=== PATIENT | female | born 1980 | race African-American/Black ===

== ENCOUNTER 2019-05-15 20:20 | Emergency (ER) | payer OTHER ==
--- OUTSIDE RECORDS SUMMARY | 2019-05-15 20:22 | XMS REPORT ---
:1980 [facility] [address] [place] [address] Care Team Providers Name Role Phone Unavailable Unavailable Unavailable Payers Payer Name Policy Type Policy Number Effective Date Expiration Date Problems This patient has no known problems. Allergies, Adverse Reactions, Alerts This patient has no known allergies or adverse reactions. Medications This patient has no known medications. Results Test Description Test Time Test Comments Text Results Atomic Results Result Comments - US PELVIS COMPLETE 2018-10-22 14:24:00 Patient Name: PAGE WONG Unit No: [id number] EXAMS: CPT CODE: [id number] US PELVIS COMPLETE 36718 PELVIC ULTRASOUND, 10/22/2018: COMPARISON: July 23, 2018 CLINICAL HISTORY: LEFT OVARIAN CYST TECHNIQUE: Transabdominal and endovaginal scanning was performed. FINDINGS: The uterus measures 7.1 x 3.9 x 4.6 cm. The endometrial stripe measured 5 mm in thickness. There is a 4 mm subtle echogenic focus within the endometrium. This appears to have a vascular stalk and is suspicious for a small endometrial polyp. There is a 1.1 x 1.0 x 1.2 cm anterior fundal right-sided intramural uterine fibroid. The right ovary measures 4.6 x 3.2 x 3.0 cm and contains small subcentimeter follicles. The left ovary measures 4.5 x 2.0 x 3.5 cm and contains small subcentimeter peripheral follicles. No free fluid is evident. CONCLUSION: Suspect 4 mm endometrial polyp. Probable uterine fibroid. Multiple small bilateral ovarian follicles. Findings are suspicious for PCOS. at 1424 Reported and signed by: Manuel Bob MD CC: Leyla Renteria MD Technologist: Kathie Kaur RDMS Probe: Trnscrbd D/ (1424) [email or web address] Orig Print D/T: S: 10/22/2018 (7228) [facility] NAME: WONGNIMESH RIVASPAGE Radiology Department [facility]YS: [facility] Whitfield MD [address] : 1980 AGE: 38 SEX: F [place] [address] LOC: Wandy.RAD PHONE #: [phone] EXAM DATE: 10/22/2018 STATUS: REG CLI FAX #: [phone] RAD NO: [id number] Page 1 Signed Report Patient Name: PAGE WONG Unit No: [id number] EXAMS: CPT CODE: [id number] US PELVIS COMPLETE 74170 <Continued> [facility] NAME: NIMESH WONGHANIE Radiology Department PHYS: SCARLETTMeggan Rubi Cornejo MD [address] : 1980 AGE: 38 SEX: F [place] [address] LOC: Wandy.RAD PHONE #: [phone] EXAM DATE: 10/22/2018 STATUS: REG CLI FAX #: [phone] RAD NO: [id number] Page 2 Signed Report - US TRANSVAGINAL W/PELVIS 2018-10-22 14:24:00 Patient Name: PAGE WONG Unit No: [id number] EXAMS: CPT CODE: [id number] US TRANSVAGINAL W/PELVIS 36237 PELVIC ULTRASOUND, 10/22/2018: COMPARISON: July 23, 2018 CLINICAL HISTORY: LEFT OVARIAN CYST TECHNIQUE: Transabdominal and endovaginal scanning was performed. FINDINGS: The uterus measures 7.1 x 3.9 x 4.6 cm. The endometrial stripe measured 5 mm in thickness. There is a 4 mm subtle echogenic focus within the endometrium. This appears to have a vascular stalk and is suspicious for a small endometrial polyp. There is a 1.1 x 1.0 x 1.2 cm anterior fundal right-sided intramural uterine fibroid. The right ovary measures 4.6 x 3.2 x 3.0 cm and contains small subcentimeter follicles. The left ovary measures 4.5 x 2.0 x 3.5 cm and contains small subcentimeter peripheral follicles. No free fluid is evident. CONCLUSION: Suspect 4 mm endometrial polyp. Probable uterine fibroid. Multiple small bilateral ovarian follicles. Findings are suspicious for PCOS. at 1424 Reported and signed by: Manuel Bob MD CC: Leyla Renteria MD Technologist: Kathie Kaur RDWI Probe: [id number] Trnscrbd D/ (0832) [email or web address] Orig Print D/T: S: 10/22/2018 (8253) [facility] NAME: PAGE WONG Radiology Department PHYS: Rubi Aaron MD [address] : 1980 AGE: 38 SEX: F [place] [address] LOC: NiviaRAD PHONE #: [phone] EXAM DATE: 10/22/2018 STATUS: REG CLI FAX #: [phone] RAD NO: [id number] Page 1 Signed Report Patient Name: PAGE WONG Unit No: [id number] EXAMS: CPT CODE: [id number] US TRANSVAGINAL W/PELVIS 16264 <Continued> [facility] NAME: PAGE OWNG Radiology Department PHYS: Rubi Aaron MD [address] : 1980 AGE: 38 SEX: F [place] [address] LOC: Wandy.RAD PHONE #: [phone] EXAM DATE: 10/22/2018 STATUS: REG CLI FAX #: [phone] RAD NO: [id number] Page 2 Signed Report - US TRANSVAGINAL W/PELVIS 2018-07-23 16:04:00 Patient Name: PAGE WONG Unit No: [id number] EXAMS: CPT CODE: [id number] US TRANSVAGINAL W/PELVIS 14413 Pelvic US performed July 23, 2018 1538 hours. COMPARISON: No prior images available for comparison but comparison is made to prior report dated 04/03/2001 CLINICAL HISTORY: Abnormal bleeding. DISCUSSION: Real-time horta scale sonography performed of the pelvis via the transabdominal and transvaginal approach. The uterus measures 82 x 34 x 44 mm and contains no focal myometrial abnormalities. The endometrium is homogenous and measures 6 mm in thickness. There is a focal hyperechoic region in the endometrium with vascular stalk measuring approximately 9 x 4 x 9 mm. Findings suggest polyp. The right ovary measures 48 x 34 x 40 mm and contains multiple small peripheral follicles. The left ovary measures 57 x 33 x 44 mm. It contains multiple small follicles. It also contains a heterogeneous 39 x 26 x 40 mm mass with some low level echoes. This likely represents a hemorrhagic cyst or endometrioma. Follow-up ultrasound to ensure resolution and exclude underlying abnormality is advised. Normal flow is seen in both ovaries. No significant free fluid in seen in the cul de sac. IMPRESSION: 1. Focal 9 mm echogenic foci in the endometrium with a vascular stalk, suggestive of polyp. 2. 4.0 cm complex cyst in the left ovary, possible hemorrhagic cyst or endometrioma. Short-term follow-up ultrasound is advised. 3. Multiple small follicles and enlarged ovaries, compatible with PCO at 1604 Reported and signed by: Emperatriz Thurman MD CC: Rubi Rowland MD; Leyla Renteria MD Technologist: Yudi Jordan [facility] Probe: [id number] Trnscrbd D/ (1604) Massiel Orig Print D/T: S: 07/23/2018 (9072) [facility] NAME: PAGE WONG Radiology Department PHYS: [facility]. - Rubi Rowland MD [address] : 1980 AGE: 38 SEX: F [place], [place] [address] LOC: NiviaRAD PHONE #: [phone] EXAM DATE: 07/23/2018 STATUS: REG CLI FAX #: [phone] RAD NO: [id number] Page 1 Signed Report Patient Name: PAGE WONG Unit No: [id number] EXAMS: CPT CODE: [id number] US TRANSVAGINAL W/PELVIS 28890 <Continued> [facility] NAME: PAGE WONG Radiology Department PHYS: Rubi Aaron MD [address] : 1980 AGE: 38 SEX: [place] [address] LOC: NiviaRAD PHONE #: [phone] EXAM DATE: 07/23/2018 STATUS: REG CLI FAX #: [phone] RAD NO: [id number] Page 2 Signed Report - US PELVIS COMPLETE 2018-07-23 16:04:00 Patient Name: PAGE WONG Unit No: [id number] EXAMS: CPT CODE: [id number] US PELVIS COMPLETE 82654 Pelvic US performed July 23, 2018 1538 hours. COMPARISON: No prior images available for comparison but comparison is made to prior report dated 04/03/2001 CLINICAL HISTORY: Abnormal bleeding. DISCUSSION: Real-time horta scale sonography performed of the pelvis via the transabdominal and transvaginal approach. The uterus measures 82 x 34 x 44 mm and contains no focal myometrial abnormalities. The endometrium is homogenous and measures 6 mm in thickness. There is a focal hyperechoic region in the endometrium with vascular stalk measuring approximately 9 x 4 x 9 mm. Findings suggest polyp. The right ovary measures 48 x 34 x 40 mm and contains multiple small peripheral follicles. The left ovary measures 57 x 33 x 44 mm. It contains multiple small follicles. It also contains a heterogeneous 39 x 26 x 40 mm mass with some low level echoes. This likely represents a hemorrhagic cyst or endometrioma. Follow-up ultrasound to ensure resolution and exclude underlying abnormality is advised. Normal flow is seen in both ovaries. No significant free fluid in seen in the cul de sac. IMPRESSION: 1. Focal 9 mm echogenic foci in the endometrium with a vascular stalk, suggestive of polyp. 2. 4.0 cm complex cyst in the left ovary, possible hemorrhagic cyst or endometrioma. Short-term follow-up ultrasound is advised. 3. Multiple small follicles and enlarged ovaries, compatible with PCO at 1604 Reported and signed by: Emperatriz Thurman MD CC: Rubi Rowland MD; Leyla Renteria MD Technologist: Yudi Jordan RDMS Probe: Trnscrbd D/ (1604) [email or web address].NMG Orig Print D/T: S: 07/23/2018 (9957) [facility] NAME: PAGE WONG Radiology Department PHYS: Rubi Aaron MD [address] : 1980 AGE: 38 SEX: F [place] [address] LOC: Wandy.RAD PHONE #: [phone] EXAM DATE: 07/23/2018 STATUS: REG CLI FAX #: [phone] RAD NO: [id number] Page 1 Signed Report Patient Name: PAGE WONG Unit No: [id number] EXAMS: CPT CODE: [id number] US PELVIS COMPLETE 44313 <Continued> [facility] NAME: PAGE WONG Radiology Department PHYS: Rubi Aaron MD [address] : 1980 AGE: 38 SEX: F [place] [address] LOC: F.RAD PHONE #: [phone] EXAM DATE: 07/23/2018 STATUS: REG CLI FAX #: [phone] RAD NO: [id number] Page 2 Signed Report
--- OUTSIDE RECORDS SUMMARY | 2019-05-15 20:22 | XMS REPORT ---
:1980 Author Organization [employer] Care Team Providers Name Role Phone Leyla Renteria Provider Role Unavailable Allergies, Adverse Reactions, Alerts Substance Reaction Event Type Cipro Info Not Available Drug Allergy Problems Problem Type Condition Code Onset Dates Condition Status Problem Depression with anxiety F41.8 Active Problem Vitamin D deficiency E55.9 Active Problem Obesity (BMI 30-39.9) E66.9 Active Problem Elevated liver function tests R94.5 Active Problem Elevated BP without diagnosis of R03.0 Active hypertension Problem Abnormal CBC R79.89 Active Problem Abnormal renal function test R94.4 Active Problem Abnormal pelvic ultrasound R93.89 Active Problem Hypercholesterolemia E78.00 Active Problem Schizoaffective disorder, F25.9 Active unspecified type Problem Uncontrolled type 2 diabetes E11.65 Active mellitus with hyperglycemia Problem PCOS (polycystic ovarian syndrome) E28.2 Active Problem Essential hypertension I10 Active Medications Medication Code System Code Instructions Start Date End Date Status Dosage Bactrim DS [facility] 99287379164 800-160 MG Orally Feb 13, Feb 18, Active 1 tablet Twice a day 2018 2018 Results No Known Results Summary Purpose [employer] Submission
--- OUTSIDE RECORDS SUMMARY | 2019-05-15 20:23 | XMS REPORT ---
[...] Problem Obesity (BMI 30-39.9) E66.9 Active Problem Abnormal renal function test R94.4 Active Assessment Vitamin D deficiency E55.9 Active Problem Abnormal pelvic ultrasound R93.89 Active Assessment Obesity (BMI 30-39.9) E66.9 Active Assessment Depression with anxiety F41.8 Active Problem Hypercholesterolemia E78.00 Active Problem Schizoaffective disorder, F25.9 Active unspecified type Problem Uncontrolled type 2 diabetes E11.65 Active mellitus with hyperglycemia Problem PCOS (polycystic ovarian syndrome) E28.2 Active Problem Essential hypertension I10 Active Assessment Hypercholesterolemia E78.00 Active Assessment Uncontrolled type 2 diabetes E11.65 Active mellitus with hyperglycemia Assessment Abnormal CBC R79.89 Active Assessment Elevated liver function tests R94.5 Active Problem Elevated liver function tests R94.5 Active Assessment Abnormal renal function test R94.4 Active Problem Elevated BP without diagnosis of R03.0 Active hypertension Assessment Schizoaffective disorder, F25.9 Active unspecified type Assessment Essential hypertension I10 Active Problem Abnormal CBC R79.89 Active Medications Medication Code Code Instructions Start End Status Dosage System Date Date Paxil CR [facility] 37545584790 37.5 MG Orally Active 1 tablet Twice daily BusPIRone HCl [facility] 82327406911 10 MG Orally Active 1 tablet Three times a day Metformin HCl [facility] 96273849486 1000 MG Orally Active 1 tablet Twice daily with a meal Multivitamin [facility] 02933349125 - Orally Active as directed Adults Lancets [facility] 15198428847 - as directed June Active as directed Test BS once 2018 (dispense daily lancets formulary to insurance) Darryl [facility] 30321820907 60 MG Orally Active 1 capsule Once a day in with food the evening Metformin HCl [facility] 74419930208 1000 MG Orally Active 1 tablet Twice daily with a meal Paxil ND 90347116800 10 MG Orally Active 1 tablet in Once a day the morning Lisinopril ND 97533747777 20 MG Orally Active 1 tablet Twice daily Blood Glucose NDC 0 as directed June Active as directed Monitor Test BS once 2018 (DISPENSE daily BLOOD GLUCOSE MONITOR FORMULARY TO INSURANCE) Blood Glucose NDC 0 as directed June as directed Test Strip Test BS once 2018 (DISPENSE daily BLOOD GLUCOSE TEST STRIPS FORMULARY TO INSURANCE) Results No Known Results Summary Purpose [employer] Submission
[2019-05-15] MEDS ORDERED: ASPIRIN 81 MG CHEWABLE TABLET ONE (20:59)
[2019-05-15 21:03] LABS: Absolute Lymphocytes (CBC) 1.7 K/uL (0.7-4.9); Basophils % 0.9 % (0-1.3); Hematocrit 39.7 % (36.0-45.0); Lymphocytes % 23.9 % (15.3-44.8); MPV 8.3 fL (7.6-11.3); RBC Red Blood Cell Count 5.21 M/uL (3.86-4.86)
[2019-05-15 21:22] LABS: ALT/SGPT 142 U/L (12-78); AST/SGOT 58 U/L (15-37); Albumin 3.8 g/dL (3.4-5.0); Alkaline Phosphatase 74 U/L (45-117); BUN Blood Urea Nitrogen 11 mg/dL (7-18); Bicarbonate 29 mmol/L (21-32); Bilirubin Direct 0.2 mg/dL (0-0.2); Bilirubin Total 0.6 mg/dL (0.2-1.0); Glucose Level 149 mg/dL (74-106); Magnesium 1.8 mg/dL (1.8-2.4); NT PRO-BNP 22 pg/mL (<125); Potassium 4.1 mmol/L (3.5-5.1); Protein, Total 7.9 g/dL (6.4-8.2); Sodium Level 137 mmol/L (136-145); Troponin (Emerg Dept Use Only) < 0.02 ng/mL (0.0-0.045)
--- NOTE | 2019-05-15 21:55 | ER ---
Nurse's Notes [facility] Name: Lina Castellano Age: 39 yrs Sex: Female : 1980 Arrival Date: 05/15/2019 Time: 20:21 Bed 17 Private MD: Diagnosis: Other chest pain;Type 2 diabetes mellitus;Essential (primary) hypertension Presentation: 05/15 20:24 Presenting complaint: Patient states: "I have a lot of fatigue, but the week before aj1 Roxana I noticed a lot of pain across my chest and I had dizzy spells, and its not as bad but its been persistent. And I have some decaying teeth, and I have pain in the left side of my jaw and I keep having to take Tylenol for it". Transition of care: patient was not received from another setting of care. Onset of symptoms was May 15, 2019. Risk Assessment: Do you want to hurt yourself or someone else? Patient reports no desire to harm self or others. Initial Sepsis Screen: Does the patient meet any 2 criteria? HR > 90 bpm. No. Patient's initial sepsis screen is negative. Does the patient have a suspected source of infection? No. Patient's initial sepsis screen is negative. Care prior to arrival: None. 20:24 Method Of Arrival: Ambulatory aj1 20:24 Acuity: STUART 3 aj1 Triage Assessment: 20:28 General: Appears in no apparent distress. comfortable, Behavior is calm, cooperative, aj1 appropriate for age. Pain: Pain currently is 5 out of 10 on a pain scale. Neuro: Level of Consciousness is awake, alert, obeys commands, Oriented to person, place, time, situation. Cardiovascular: Patient's skin is warm and dry. Respiratory: Airway is patent Respiratory effort is even, unlabored, Respiratory pattern is regular, symmetrical. RN EXAMINER: 20:28 LMP 04/24/2019 aj1 Historical: - Allergies: 20:28 PENICILLINS; aj1 20:28 Sulfa (Sulfonamide Antibiotics); aj1 20:28 Cipro; aj1 - Home Meds: 20:28 Geodon 60 mg oral cap 1 cap 2 times per day [Active]; Paxil 40 mg Oral tab 1 tab once aj1 daily [Active]; buspirone 30 mg Oral tab 1 tab 2 times per day [Active]; lisinopril 20 mg Oral tab 1 tab twice a day [Active]; metformin 1,000 mg Oral tab 1 tab 2 times per day [Active]; - PMHx: 20:28 Depression; Anxiety; Diabetes - NIDDM; PCOS; Hypertension; Schizophrenia; aj1 - Immunization history:: Flu vaccine is up to date. - Social history:: Smoking status: Patient/guardian denies using tobacco. - Ebola Screening: : Patient denies travel to an Ebola-affected area in the 21 days before illness onset. - Family history:: not pertinent. Screenin:40 Abuse screen: Denies threats or abuse. Denies injuries from another. Nutritional wh screening: No deficits noted. Tuberculosis screening: No symptoms or risk factors identified. Fall Risk None identified. Assessment: 20:45 General: Appears in no apparent distress. Behavior is calm, cooperative, appropriate wh for age. Pain: Complains of pain in chest Pain does not radiate. Pain currently is 5 out of 10 on a pain scale. Quality of pain is described as aching, Pain began gradually. Neuro: Level of Consciousness is awake, alert, obeys commands. Cardiovascular: Reports chest pain, Heart tones S1 S2 Rhythm is regular. Respiratory: Airway is patent Respiratory effort is even, unlabored, Respiratory pattern is regular, symmetrical, Breath sounds are clear bilaterally. GI: Abdomen is flat, non-distended. : No signs and/or symptoms were reported regarding the genitourinary system. EENT: No signs and/or symptoms were reported regarding the EENT system. Derm: Skin is intact, is healthy with good turgor, Skin is pink, warm \\T\\ dry. normal. Musculoskeletal: Circulation, motion, and sensation intact. 22:01 Reassessment: Patient appears in no apparent distress at this time. No changes from previously documented assessment. Patient and/or family updated on plan of care and expected duration. Pain level reassessed. Patient is alert, oriented x 3, equal unlabored respirations, skin warm/dry/pink. 22:58 Reassessment: Patient appears in no apparent distress at this time. No changes from previously documented assessment. Patient and/or family updated on plan of care and expected duration. Pain level reassessed. Patient is alert, oriented x 3, equal unlabored respirations, skin warm/dry/pink. Patient denies pain at this time. Vital Signs: 20:28 BP 156 / 104; Pulse 89; Resp 18; Temp 98.0; Pulse Ox 99% on R/A; Weight 115.21 kg (R); [facility] Height 5 ft. 7 in. (170.18 cm) (R); Pain 5/10; 22:02 BP 137 / 83; Pulse 80; Resp 18; Pulse Ox 99% ; 22:58 BP 135 / 81; Pulse 84; Resp 18; Pulse Ox 99% on R/A; 20:28 Body Mass Index 39.78 (115.21 kg, 170.18 cm) [facility] ED Course: 20:21 Patient arrived in ED. cl3 20:26 Triage completed. [facility] 20:28 Arm band placed on Patient placed in waiting room, Patient notified of wait time. [facility] 20:32 Pilo Peter MD is Attending Physician. [facility] 20:40 Patient has correct armband on for positive identification. Bed in low position. Call light in reach. Side rails up X 1. equipment monitor phototypesetting on. Pulse ox on. NIBP on. 20:40 Inserted saline lock: 20 gauge in right antecubital area, using aseptic technique. Blood collected. 20:42 Sharon Longo is Primary Nurse. 21:01 XRAY Chest (1 view) In Process Unspecified. EDOR 21:55 David Patton MD is Referral Physician. [facility] 22:59 No provider procedures requiring assistance completed. IV discontinued, intact, bleeding controlled, No redness/swelling at site. Administered Medications: 20:57 Drug: Aspirin Chewable Tablet 162 mg Route: PO; 21:49 Follow up: Response: No adverse reaction 22:20 Not Given (Patient Refused): Lopressor 25 mg PO once Outcome: 21:54 Discharge ordered by . [facility] 22:59 Discharged to home ambulatory, with family. 22:59 Condition: stable 22:59 Discharge instructions given to patient, family, Instructed on discharge instructions, follow up and referral plans. medication usage, POC Demonstrated understanding of instructions, follow-up care, medications, POC Prescriptions given X 2. 23:00 Patient left the ED. Signatures: Dispatcher [employer] EDOR Karine Naik RN RN aj1 Pilo Peter MD MD cha Habalo, Winsy Gilberto, Charde cl3
--- NOTE | 2019-05-15 21:56 | EDPHYS ---
Physician Documentation [facility] Name: Lina Castellano Age: 39 yrs Sex: Female : 1980 Arrival Date: 05/15/2019 Time: 20:21 Bed 17 Private MD: ED Physician Pilo Peter HPI: 05/15 21:48 This 39 yrs old Black Female presents to ER via Ambulatory with complaints of Chest luis alfredo Pain. 21:48 The patient or guardian reports chest pain that is located primarily in the anterior luis alfredo chest wall, bilaterally. The pain does not radiate. Associated signs and symptoms: The patient has no apparent associated signs or symptoms. The chest pain is described as aching, sore. Duration: The patient or guardian reports a single episode, that lasted 12 hour(s), The patient or guardian reports multiple episodes, with no pattern. Modifying factors: The symptoms are alleviated by nothing. the symptoms are aggravated by palpation of area. Severity of pain: At its worst the pain was mild in the emergency department the pain is unchanged. The patient has experienced similar episodes in the past, a few times. ENTERER: 20:28 LMP 04/24/2019 aj1 Historical: - Allergies: 20:28 PENICILLINS; aj1 20:28 Sulfa (Sulfonamide Antibiotics); aj1 20:28 Cipro; aj1 - Home Meds: 20:28 Geodon 60 mg oral cap 1 cap 2 times per day [Active]; Paxil 40 mg Oral tab 1 tab once aj1 daily [Active]; buspirone 30 mg Oral tab 1 tab 2 times per day [Active]; lisinopril 20 mg Oral tab 1 tab twice a day [Active]; metformin 1,000 mg Oral tab 1 tab 2 times per day [Active]; - PMHx: 20:28 Depression; Anxiety; Diabetes - NIDDM; PCOS; Hypertension; Schizophrenia; aj1 - Immunization history:: Flu vaccine is up to date. - Social history:: Smoking status: Patient/guardian denies using tobacco. - Ebola Screening: : Patient denies travel to an Ebola-affected area in the 21 days before illness onset. - Family history:: not pertinent. ROS: 21:48 Constitutional: Negative for fever, chills, and weight loss, Eyes: Negative for injury, luis alfredo pain, redness, and discharge, ENT: Negative for injury, pain, and discharge, Neck: Negative for injury, pain, and swelling, Cardiovascular: Negative for chest pain, palpitations, and edema, Abdomen/GI: Negative for abdominal pain, nausea, vomiting, diarrhea, and constipation, Back: Negative for injury and pain, : Negative for injury, bleeding, discharge, and swelling, MS/Extremity: Negative for injury and deformity, Skin: Negative for injury, rash, and discoloration, Neuro: Negative for headache, weakness, numbness, tingling, and seizure, Psych: Negative for depression, anxiety, suicide ideation, homicidal ideation, and hallucinations, Allergy/Immunology: Negative for hives, rash, and allergies, Endocrine: Negative for neck swelling, polydipsia, polyuria, polyphagia, and marked weight changes, Hematologic/Lymphatic: Negative for swollen nodes, abnormal bleeding, and unusual bruising. 21:48 Respiratory: Positive for cough. Exam: 21:48 Constitutional: This is a well developed, well nourished patient who is awake, alert, luis alfredo and in no acute distress. Head/Face: Normocephalic, atraumatic. Eyes: Pupils equal round and reactive to light, extra-ocular motions intact. Lids and lashes normal. Conjunctiva and sclera are non-icteric and not injected. Cornea within normal limits. Periorbital areas with no swelling, redness, or edema. ENT: Nares patent. No nasal discharge, no septal abnormalities noted. Tympanic membranes are normal and external auditory canals are clear. Oropharynx with no redness, swelling, or masses, exudates, or evidence of obstruction, uvula midline. Mucous membranes moist. Neck: Trachea midline, no thyromegaly or masses palpated, and no cervical lymphadenopathy. Supple, full range of motion without nuchal rigidity, or vertebral point tenderness. No Meningismus. Chest/axilla: Normal chest wall appearance and motion. Nontender with no deformity. No lesions are appreciated. Cardiovascular: Regular rate and rhythm with a normal S1 and S2. No gallops, murmurs, or rubs. Normal PMI, no JVD. No pulse deficits. Respiratory: Lungs have equal breath sounds bilaterally, clear to auscultation and percussion. No rales, rhonchi or wheezes noted. No increased work of breathing, no retractions or nasal flaring. Abdomen/GI: Soft, non-tender, with normal bowel sounds. No distension or tympany. No guarding or rebound. No evidence of tenderness throughout. Back: No spinal tenderness. No costovertebral tenderness. Full range of motion. Skin: Warm, dry with normal turgor. Normal color with no rashes, no lesions, and no evidence of cellulitis. MS/ Extremity: Pulses equal, no cyanosis. Neurovascular intact. Full, normal range of motion. Neuro: Awake and alert, GCS 15, oriented to person, place, time, and situation. Cranial nerves II-XII grossly intact. Motor strength 5/5 in all extremities. Sensory grossly intact. Cerebellar exam normal. Normal gait. Psych: Awake, alert, with orientation to person, place and time. Behavior, mood, and affect are within normal limits. 21:51 Musculoskeletal/extremity: DVT Exam: No signs of deep vein thrombosis. no pain, no luis alfredo swelling, no tenderness, negative Homans' sign noted on exam, no appreciated bluish discoloration, no erythema, no increased warmth. Vital Signs: 20:28 BP 156 / 104; Pulse 89; Resp 18; Temp 98.0; Pulse Ox 99% on R/A; Weight 115.21 kg (R); aj1 Height 5 ft. 7 in. (170.18 cm) (R); Pain 5/10; 22:02 BP 137 / 83; Pulse 80; Resp 18; Pulse Ox 99% ; wh 22:58 BP 135 / 81; Pulse 84; Resp 18; Pulse Ox 99% on R/A; wh 20:28 Body Mass Index 39.78 (115.21 kg, 170.18 cm) [facility] MDM: 20:33 Patient medically screened. [facility] 21:50 Data reviewed: vital signs, nurses notes, lab test result(s), EKG, radiologic studies, [facility] plain films. 05/15 20:37 Order name: Basic Metabolic Panel; Complete Time: 21:35 [facility] 05/15 20:37 Order name: CBC with Diff; Complete Time: 21:35 [facility] 05/15 20:37 Order name: LFT's; Complete Time: 21:35 [facility] 05/15 20:37 Order name: Magnesium; Complete Time: 21:35 [facility] 05/15 20:37 Order name: NT PRO-BNP; Complete Time: 21:35 [facility] 05/15 20:37 Order name: PT-INR; Complete Time: 21:35 [facility] 05/15 20:37 Order name: Troponin (emerg Dept Use Only); Complete Time: 21:35 [facility] 05/15 20:37 Order name: XRAY Chest (1 view) [facility] 05/15 20:37 Order name: EKG; Complete Time: 20:38 [facility] 05/15 20:37 Order name: Cardiac monitoring; Complete Time: 20:55 [facility] 05/15 22:50 Order name: Troponin I [facility] 05/15 20:37 Order name: EKG - Nurse/Tech; Complete Time: 20:55 [facility] 05/15 20:37 Order name: IV Saline Lock; Complete Time: 20:55 [facility] 05/15 20:37 Order name: Labs collected and sent; Complete Time: 20:55 [facility] 05/15 20:37 Order name: O2 Per Protocol; Complete Time: 20:55 [facility] 05/15 20:37 Order name: O2 Sat Monitoring; Complete Time: 20:55 [facility] Administered Medications: 20:57 Drug: Aspirin Chewable Tablet 162 mg Route: PO; 21:49 Follow up: Response: No adverse reaction 22:20 Not Given (Patient Refused): Lopressor 25 mg PO once Disposition: 05/15/19 21:54 Discharged to Home. Impression: Other chest pain, Type 2 diabetes mellitus, Essential (primary) hypertension. - Condition is Stable. - Discharge Instructions: Type 2 Diabetes Mellitus, Diagnosis, Adult, Hypertension, Hypertension, [id number], Aspirin and Your Heart, Type 2 Diabetes Mellitus, Diagnosis, Adult, [id number]. - Prescriptions for Toprol XL 25 mg Oral Tablet - take 1 tablet by ORAL route once daily; 20 tablet. Lisinopril 20 mg Oral Tablet - take 1 tablet by ORAL route once daily; 20 tablet. - Medication Reconciliation Form, Thank You Letter, Antibiotic Education, Prescription Opioid Use form. - Follow up: Private Physician; When: 2 - 3 days; Reason: Recheck today's complaints, Continuance of care, Re-evaluation by your physician. Follow up: David Patton MD; When: 2 - 3 days; Reason: Recheck today's complaints, Re-evaluation by your physician. - Problem is new. - Symptoms have improved. Signatures: Dispatcher [employer] Karine Brizuela RN RN aj1 Pilo Peter MD MD cha Hab[place], Winsy Corrections: (The following items were deleted from the chart) 21:55 21:54 05/15/2019 21:54 Discharged to Home. Impression: Other chest pain; Type 2 luis alfredo diabetes mellitus; Essential (primary) hypertension. Condition is Stable. Forms are Medication Reconciliation Form, Thank You Letter, Antibiotic Education, Prescription Opioid Use. Follow up: Private Physician; When: 2 - 3 days; Reason: Recheck today's complaints, Continuance of care, Re-evaluation by your physician. Problem is new. Symptoms have improved. luis alfredo 22:50 21:49 TROPONIN (EMERG DEPT USE ONLY)+C.LAB.BRZ ordered. EDMS EDMS 23:00 21:55 05/15/2019 21:54 Discharged to Home. Impression: Other chest pain; Type 2 wh diabetes mellitus; Essential (primary) hypertension. Condition is Stable. Forms are Medication Reconciliation Form, Thank You Letter, Antibiotic Education, Prescription Opioid Use. Follow up: Private Physician; When: 2 - 3 days; Reason: Recheck today's complaints, Continuance of care, Re-evaluation by your physician. Follow up: David Patton; When: 2 - 3 days; Reason: Recheck today's complaints, Re-evaluation by your physician. Problem is new. Symptoms have improved. luis alfredo
[2019-05-15] MEDS ORDERED: METOPROLOL TAR 25 MG TAB ONE (22:18)
[2019-05-15 23:58] VITALS: TEMP 98; O2SAT 99
[2019-05-15 23:59] VITALS: BP 137/83
--- NOTE | 2019-05-16 07:57 | RAD REPORT ---
EXAM DESCRIPTION: Martin Single View05/15/2019 9:01 pm CLINICAL HISTORY: cough COMPARISON: none FINDINGS: The lungs appear clear of acute infiltrate. The heart is normal size IMPRESSION: No acute abnormalities displayed
--- NOTE | 2019-05-17 14:02 | EKG ---
Test Date: 2019-05-15 Test Time: 21:01:38 Bat Carrier: IMAN MEASUREMENT RESULTS: Intervals: Rate: 81 RI: 172 QRSD: 94 QT: 372 QTc: 432 Tennyson: P: 47 RI: 172 QRS: 81 T: 18 INTERPRETIVE STATEMENTS: Normal sinus rhythm Cannot rule out Anterior infarct, age undetermined Abnormal ECG Compared to ECG 10/21/2018 11:49:01 Myocardial infarct finding now present Right-axis deviation no longer present Electronically Signed On 05-17-19 13:59:25 [employer] by David Patton
== END 2019-05-15 23:00 | disposition home or self-care (01) ==
LOC: ER 20:20
DX: R07.89 Other chest pain (principal); I10 Essential (primary) hypertension; E11.9 Type 2 diabetes mellitus without complications; F34.1 Dysthymic disorder; Z88.0 Allergy status to penicillin; Z88.1 Allergy status to other antibiotic agents; Z88.2 Allergy status to sulfonamides
CPT/HCPCS: 36415; 71045; 80048; 80076; 83735; 83880; 84484; 85025; 85610; 93005; 99284